=== PATIENT | male | born 1975 | race Caucasian/White ===

== ENCOUNTER 2017-10-10 14:40 | Emergency (ER) | payer BC ==
[~2017-10-10] VITALS: Ht 175.3 cm; Wt 108.9 kg
--- OUTSIDE RECORDS SUMMARY | ~2017-10-10 | XMS | Clinical Summary ---
Demographics + + + | Address | [address] | | | [place] [address] | + + + | Home Phone | | + + + | Preferred Language | Unknown | + + + | Marital Status | | + + + | Caodaism Affiliation | Unknown | + + + | Race | Unknown | + + + | Ethnic Group | Unknown | + + + Author + + + | Author | [facility] | | | and [place] | + + + | Organization | [facility] | | | and [place] | + + + | Address | Unknown | + + + | Phone | Unavailable | + + + Support + + +---------+ + | Name | Relationship | Address | Phone | + + +---------+ + | Desiree Cheung | ECON | Unknown | | + + +---------+ + Care Team Providers + +------+ + | Care Home Improvement Advisor Name | Role | Phone | + +------+ + | No, Unknownpcp | PP | | + +------+ + Allergies No Known Allergies Current Medications No known medications Active Problems No known active problems Social History + +-------+ +--------+------+ | Tobacco Use | Types | Packs/Day | Years | Date | | | | | Used | | + +-------+ +--------+------+ | Never Smoker | | | | | + +-------+ +--------+------+ + +---+---+---+ | Smokeless Tobacco: | | | | | Never Used | | | | + +---+---+---+ + + + | Sex Assigned at | Date Recorded | | | | + + + | Not on file | | + + + Last Filed Vital Signs + + + + | Vital Sign | Reading | Time Taken | + + + + | Blood Pressure | 124/86 | 07/25/20131104 PDT | + + + + | Pulse | 72 | 07/25/20131104 PDT | + + + + | Temperature | 36.7 C (98.1 F) | 07/25/20131104 PDT | + + + + | Respiratory Rate | 16 | 07/25/20131104 PDT | + + + + | Oxygen Saturation | - | - | + + + + | Inhaled Oxygen | - | - | | Concentration | | | + + + + | Weight | 103.4 kg (228 lb) | 07/25/20131104 PDT | + + + + | Height | 177.8 cm (5' 10") | 07/25/20131104 PDT | + + + + | Body Mass Index | 32.71 | 07/25/20131104 PDT | + + + + Plan of Treatment + + + + + | Health Maintenance | Due Date | Last Done | Comments | + + + + + | Vaccine: | | | | | Dtap/Tdap/Td (1 - | 7 | | | | Tdap) | | | | + + + + + | Vaccine: Influenza | | | | | (#1) | 8 | | | + + + + + Results Not on filefrom Last 3 Months
--- OUTSIDE RECORDS SUMMARY | ~2017-10-10 | XMS | Clinical Summary ---
Demographics + + + | Address | [address] | | | [place] [address] | + + + | Home Phone | | + + + | Preferred Language | Unknown | + + + | Marital Status | | + + + | Yazdanism Affiliation | Unknown | + + + | Race | Unknown | + + + | Ethnic Group | Unknown | + + + Author + + + | Author | [facility] | | | and [place] | + + + | Organization | [facility] | | | and [...] Team Providers + +------+ + | Care Jointer Submarine Cable Name | Role | Phone | + [...]
--- OUTSIDE RECORDS SUMMARY | ~2017-10-10 | XMS | Clinical Summary ---
Demographics + + + | Address | [address] | | | [place] [address] | + + + | Home Phone | | + + + | Preferred Language | Unknown | + + + | Marital Status | Single | + + + | Pentecostalism Affiliation | 1013 | + + + | Race | Unknown | + + + | Ethnic Group | Unknown | + + + Author + + + | Author | [facility] | + + + | Organization | [facility] | + + + | Address | Unknown | + + + | Phone | Unavailable | + + + Support + + +---------+ + | Name | Relationship | Address | Phone | + + +---------+ + | June Troncoso | ECON | Unknown | | + + +---------+ + Care Team Providers + +------+ + | Care Rn Advanced Name | Role | Phone | + +------+ + | Medicine, [place] | PP | Unavailable | | Family | | | + +------+ + Allergies No Known Allergies Current Medications + + +-------+---------+------+------+-------+ | Prescription | Sig. | Disp. | Refills | Star | End | Statu | | | | | | t | Date | s | | | | | | Date | | | + + +-------+---------+------+------+-------+ | ibuprofen (ADVIL) | Take 800 mg by mouth | | | | | Activ | | 200 MG tablet | every 6 (six) hours | | | | | e | | | as needed for Pain. | | | | | | + + +-------+---------+------+------+-------+ Active Problems Not on file Social History + +-------+ +--------+------+ | Tobacco Use | Types | Packs/Day | Years | Date | | | | | Used | | + +-------+ +--------+------+ | Never Smoker | | | | | + +-------+ +--------+------+ + + +---------+ + | Alcohol Use | Drinks/We | oz/Week | Comments | | | ek | | | + + +---------+ + | Yes | | | | + + +---------+ + + + + | Sex Assigned at | Date Recorded | | | | + + + | Not on file | | + + + Last Filed Vital Signs + + + + | Vital Sign | Reading | Time Taken | + + + + | Blood Pressure | 143/80 | 11/17/2014 3:04 PM PDT | + + + + | Pulse | 62 | 11/17/2014 3:04 PM PDT | + + + + | Temperature | 36.9 C (98.4 F) | 11/17/2014 1:55 PM PDT | + + + + | Respiratory Rate | 16 | 11/17/2014 3:04 PM PDT | + + + + | Oxygen Saturation | 97% | 11/17/2014 3:04 PM PDT | + + + + | Inhaled Oxygen | - | - | | Concentration | | | + + + + | Weight | 113.4 kg (250 lb) | 11/17/2014 1:55 PM PDT | + + + + | Height | - | - | + + + + | Body Mass Index | - | - | + + + + Plan of Treatment Not on file Results Not on filefrom Last 3 Months Insurance + +--------+ +------+-------+---------+ | Payer | Benefi | Subscriber | Type | Phone | Address | | | t Plan | ID | | | | | | / | | | | | | | Group | | | | | + +--------+ +------+-------+---------+ | [facility] | [place] | [id number] | | | | | | | | | | | | | HEALTH | | | | | | | CARE - | | | | | | | [place]LC | | | | | + +--------+ +------+-------+---------+ + +--------+ +--------+ + + | Guarantor Name | Accoun | Relation to | Date | Phone | Billing Address | | | t Type | Patient | of | | | | | | | | | | + +--------+ +--------+ + + | CODY JENKINS | Person | Self [birth year] Home: | [address] | | | al/Fam | | 1975 | [phone] | [place] [address] | | | t[place]anie | | | [phone] | | + +--------+ +--------+ + +"
--- OUTSIDE RECORDS SUMMARY | ~2017-10-10 | XMS | Clinical Summary ---
Demographics + + + | Address | [address] | | | [place] [address] | + + + | Home Phone | | + + + | Preferred Language | Unknown | + + + | Marital Status | Single | + + + | Islam Affiliation | 1013 | + + + | Race | Unknown | + + + | Ethnic Group | Unknown | + + + Author + + + | Author | [facility] | + + + | Organization | [facility] | + + + | Address | Unknown | + + + | Phone | Unavailable | + + + Support + + +---------+ + | Name | Relationship | Address | Phone | + + +---------+ + | June Troncoso | ECON | Unknown | | + + +---------+ + Care Team Providers + +------+ + | Care Rn Document Improvement Specialist Name | Role | Phone | + +------+ + | Medicine, [place] | PP | Unavailable | | Family [...] | | | + +--------+ +------+-------+---------+ | [facility] | [place] | [id number] | | | | | | | [...] | 1975 | [phone] | [place] [address] | | | tiffanie | | | [phone] | | + +--------+ +--------+ + +"
--- NOTE | 2017-10-11 08:09 | EKG ---
[facility] [address] [place], [place] [address] Signed Normal sinus rhythm Normal ECG No previous ECGs available Confirmed by CHRISTIANO NUÑEZ MD ([id number]) on 10/11/2017 8:08:21 AM Electronically Signed By: CHRISTIANO NUÑEZ MD 10/11/17 08 PATIENT NAME: MYRA JENKINS Electrocardiogram DATE OF : [birth year] PHYSICIAN: CHRISTIANO NUÑEZ MD REPORT #: [id number] REPORT IS CONFIDENTIAL AND NOT TO BE RELEASED WITHOUT AUTHORIZATION
== END 2017-10-10 16:23 | disposition home or self-care (01) ==
LOC: ED 14:40
DX: R07.2 Precordial pain (principal); Z88.5 Allergy status to narcotic agent
CPT/HCPCS: 71045; 80053; 84484; 85025; 93005; 93010; 99285